=== PATIENT | female | born 1955 | race Caucasian/White ===

== ENCOUNTER 2017-08-01 09:37 | Day surgery (SDC) | payer OTHER ==
[~2017-08-01] VITALS: Ht 157.5 cm; Wt 108.0 kg
[~2017-08-01 09:37] MED LIST: ABILIFY10 MG PO; BUSPAR; CYMBALTA; CYMBALTA60 MG PO; DOLOPHINE HCL5 MG PO; DOXAPIN; ELAVIL50 MG PO; GLUCOPHAGE500 MG PO; LATUDA20 MG PO; LIPITOR40 MG PO; METHADONE; NEURONTIN; NEURONTIN400 MG PO; NEXIUM10 MG PO; NEXIUM40 MG PO; XANAX; ZANAFLEX2 M1 PO
[2017-08-01 10:27] LABS: POINT-OF-CARE METER ID UU14174212
== END 2017-08-01 11:20 | disposition home or self-care (01) ==
LOC: PAIN 09:37 → SDC 10:15 → PAIN 11:20
PROVIDERS: Anesthesiology Pain Medicine
DX: M47.26 Other spondylosis with radiculopathy, lumbar region (principal); M54.5 Low back pain; G89.29 Other chronic pain; M50.90 Cervical disc disorder, unspecified, unspecified cervical region; M79.7 Fibromyalgia; K21.9 Gastro-esophageal reflux disease without esophagitis; E66.9 Obesity, unspecified; Z68.41 Body mass index [BMI] 40.0-44.9, adult
CPT/HCPCS: 82948; J1030; J2250; J3010; S0020

== ENCOUNTER 2017-09-05 09:57 | Day surgery (SDC) | payer OTHER ==
[~2017-09-05] VITALS: Ht 157.5 cm; Wt 105.2 kg
[~2017-09-05 09:57] MED LIST changes: +ATARAX,VISTARIL25 MG PO; +INDERAL10 MG PO; -LATUDA20 MG PO; +LATUDA40 MG PO; +PRILOSEC20 MG PO
== END 2017-09-05 13:18 | disposition home or self-care (01) ==
LOC: PAIN 09:57 → SDC 12:22 → PAIN 13:13
PROVIDERS: Anesthesiology Pain Medicine
DX: M47.26 Other spondylosis with radiculopathy, lumbar region (principal); M54.5 Low back pain; G89.29 Other chronic pain; M50.90 Cervical disc disorder, unspecified, unspecified cervical region; E11.9 Type 2 diabetes mellitus without complications; K21.9 Gastro-esophageal reflux disease without esophagitis; M79.7 Fibromyalgia
CPT/HCPCS: 82948; J1030; J2250; S0020

== ENCOUNTER 2017-11-11 09:41 | Day surgery (SDC) | payer OTHER ==
[~2017-11-11] VITALS: Ht 157.5 cm; Wt 104.3 kg
[~2017-11-11 09:41] MED LIST changes: +BACK & BODY PA1 EACH PO
== END 2017-11-11 11:05 | disposition home or self-care (01) ==
LOC: PAIN 09:41
PROVIDERS: Anesthesiology Pain Medicine
DX: M47.816 Spondylosis without myelopathy or radiculopathy, lumbar region (principal); M62.830 Muscle spasm of back; G89.29 Other chronic pain; M25.512 Pain in left shoulder; M54.16 Radiculopathy, lumbar region; Z98.1 Arthrodesis status; E11.9 Type 2 diabetes mellitus without complications; Z79.84 Long term (current) use of oral hypoglycemic drugs; E66.9 Obesity, unspecified; Z84.1 Family history of disorders of kidney and ureter
CPT/HCPCS: 82948; J1030; J2250; S0020

== ENCOUNTER 2017-11-18 09:16 | Day surgery (SDC) | payer OTHER ==
[~2017-11-18] VITALS: Ht 157.5 cm; Wt 109.3 kg
== END 2017-11-18 11:15 | disposition home or self-care (01) ==
LOC: PAIN 09:16 → SDC 10:00 → PAIN 11:15
PROVIDERS: Anesthesiology Pain Medicine
DX: M47.816 Spondylosis without myelopathy or radiculopathy, lumbar region (principal); G89.29 Other chronic pain; M54.16 Radiculopathy, lumbar region; Z98.1 Arthrodesis status; M25.512 Pain in left shoulder; M50.90 Cervical disc disorder, unspecified, unspecified cervical region; F31.9 Bipolar disorder, unspecified; E11.9 Type 2 diabetes mellitus without complications; E66.9 Obesity, unspecified; Z68.41 Body mass index [BMI] 40.0-44.9, adult; Z79.84 Long term (current) use of oral hypoglycemic drugs
CPT/HCPCS: 82948; J1030; J2250; S0020

== ENCOUNTER 2018-03-17 07:19 | Day surgery (SDC) | payer OTHER ==
[~2018-03-17] VITALS: Ht 157.5 cm; Wt 109.3 kg
[~2018-03-17 07:19] MED LIST changes: -NEURONTIN400 MG PO; +NEURONTIN600 MG PO; +PERCOCET 5/31 TABLET PO; +TOPAMAX25 MG PO
== END 2018-03-17 09:18 | disposition home or self-care (01) ==
LOC: PAIN 07:19 → SDC 08:00 → PAIN 08:00
PROVIDERS: Anesthesiology Pain Medicine
PROC: 3E0U3BZ Introduction of Anesthetic Agent into Joints, Percutaneous Approach (ICD-10-PCS; principal; 2018-03-17)
PROC: 3E0U33Z Introduction of Anti-inflammatory into Joints, Percutaneous Approach (ICD-10-PCS; principal; 2018-03-17)
DX: M53.3 Sacrococcygeal disorders, not elsewhere classified (principal); M46.1 Sacroiliitis, not elsewhere classified; M47.816 Spondylosis without myelopathy or radiculopathy, lumbar region; M54.16 Radiculopathy, lumbar region; M19.019 Primary osteoarthritis, unspecified shoulder; M62.830 Muscle spasm of back; M50.90 Cervical disc disorder, unspecified, unspecified cervical region; E11.9 Type 2 diabetes mellitus without complications; E66.3 Overweight; Z68.41 Body mass index [BMI] 40.0-44.9, adult; Z79.84 Long term (current) use of oral hypoglycemic drugs; Z79.891 Long term (current) use of opiate analgesic
CPT/HCPCS: 82948; J1030; J2250; J3010; S0020